=== PATIENT | female | born 1955 ===

== ENCOUNTER 2017-07-01 20:17 | Emergency (ER) | payer SELFPAY ==
[~2017-07-01] VITALS: Ht 167.6 cm; Wt 91.4 kg
[2017-07-01 20:28] VITALS: BP 172/94; PULSE 96; RESP 20; TEMP 98.3; O2SAT 96
== END 2017-07-01 21:42 | disposition left against medical advice (07) ==
LOC: PHED 20:17
DX: R10.9 Unspecified abdominal pain (principal); Z53.21 Procedure and treatment not carried out due to patient leaving prior to being seen by health care provider
CPT/HCPCS: 99281